=== PATIENT | female | born 1975 | race Caucasian/White ===

== ENCOUNTER 2018-12-12 11:58 | Emergency (ER) | payer MEDICAID ==
[~2018-12-12] VITALS: Ht 154.9 cm; Wt 88.5 kg
[2018-12-12] MEDS ORDERED: HYDROCODONE/ACETAMINOPHEN 5/325MG TABLET PO ONE (12:30)
[2018-12-12] MEDS ORDERED: KETOROLAC 60MG/2ML VIAL IM ONE (12:30)
[2018-12-12 13:35] VITALS: BP 136/75
== END 2018-12-12 13:41 | disposition home or self-care (01) ==
LOC: ER 11:58
DX: K02.9 Dental caries, unspecified (principal); K08.89 Other specified disorders of teeth and supporting structures; Z90.710 Acquired absence of both cervix and uterus
CPT/HCPCS: 81025; 96372; 99283; J1885